=== PATIENT | female | born 1960 | race Caucasian/White ===

== ENCOUNTER 2019-01-30 23:01 | Emergency (ER) | payer MEDICARE ==
[2019-01-30] MEDS ORDERED: OCTYL 2-CYANOACRYLATE 1 EACH TP ONE (23:33)
== END 2019-01-30 23:43 | disposition home or self-care (01) ==
LOC: EDH 23:01
DX: S01.81XA Laceration without foreign body of other part of head, initial encounter (principal); W01.198A Fall on same level from slipping, tripping and stumbling with subsequent striking against other object, initial encounter; Y93.89 Activity, other specified; Y92.009 Unspecified place in unspecified non-institutional (private) residence as the place of occurrence of the external cause; Y99.8 Other external cause status
CPT/HCPCS: 12001

== ENCOUNTER 2019-11-27 12:55 | Inpatient (IN) | payer MEDICARE ==
[~2019-11-27] VITALS: Ht 157.5 cm; Wt 34.2 kg
[2019-11-27 13:56] LABS: CREATININE 0.9 mg/dL (0.5-1.5); POTASSIUM 3.3 mmol/L (3.5-5.1)
[2019-11-27 14:01] LABS: ALBUMIN 3.6 g/dL (3.5-5.0); BILIRUBIN,TOTAL 0.9 mg/dL (0.2-1.0); TOTAL PROTEIN, SERUM 7.8 g/dL (6.0-8.3)
[2019-11-27 14:16] LABS: BASOPHILS % (AUTO) 0.4 % (0.0-5.0); EOSINOPHILS % (AUTO) 2.5 % (0.0-8.0); HEMATOCRIT 48.7 % (36-48); LYMPHOCYTES % (AUTO) 23.2 % (21.0-51.0); MEAN CORPUSCULAR HEMOGLOBIN 29.5 pg (27.0-33.0); MEAN CORPUSCULAR HGB CONC 32.6 g/dL (32.0-36.0); MEAN CORPUSCULAR VOLUME 90.4 fL (79-99); MONOCYTES % (AUTO) 7.2 % (3.0-13.0); NEUTROPHILS % (AUTO) 66.4 % (40.0-77.0); PLATELET COUNT (AUTO) 264 K/uL (130-400); RED BLOOD CELL COUNT(AUTO) 5.39 MIL/uL (4.00-5.50); RED CELL DISTRIBUTION WIDTH 13.7 % (11.0-15.5); WHITE BLOOD COUNT (AUTO) 6.8 K/uL (4.8-10.8)
[2019-11-27 14:59] LABS: B-TYPE NATRIURETIC PEPTIDE 27 pg/mL (0-100)
[2019-11-27 15:04] LABS: APPEARANCE,URINE Cloudy (CLEAR); BILIRUBIN,URINE Negative (NEGATIVE); COLOR,URINE Yellow (YELLOW); GLUCOSE, URINE (UA) Negative (NEGATIVE); KETONES,URINE Trace mg/dL (NEGATIVE); LEUKOCYTE ESTERASE ,URINE Moderate (NEGATIVE); NITRATE,URINE Negative (NEGATIVE); OCCULT BLOOD,URINE Moderate (NEGATIVE); PH,URINE 5.5 (5.0-8.0); PROTEIN,URINE POS 2+ mg/dL (NEGATIVE)
[2019-11-27 15:25] LABS: BACTERIA,URINE Few /HPF (None Seen); MUCUS,URINE Few LPF (None Seen); RBC,URINE None Seen /HPF (0-1); SQUAMOUS EPITHELIAL CELL,UR 0-2 /HPF (0-2); WBC,URINE 26-50 /HPF (0-1)
[2019-11-27] MEDS ORDERED: DIPHENHYDRAMINE HCL 25 MG CAPSULE PO PRN (17:30)
[2019-11-27] MEDS ORDERED: DiphenhydrAMINE HCL 50 MG/ML VIAL IV PRN (17:30)
[2019-11-27] MEDS ORDERED: ONDANSETRON HCL 4 MG/2 ML VIAL IV PRN (17:30)
[2019-11-27] MEDS ORDERED: POTASSIUM CHLORIDE 10% ELIXIR 20 MEQ/15 ML UDCUP PO PRN (17:30)
[2019-11-27] MEDS ORDERED: NITROGLYCERIN 0.4 MG SL TAB SL PRN (17:30)
[2019-11-27] MEDS ORDERED: ACETAMINOPHEN 325 MG TAB PO PRN ×2 (17:30)
[2019-11-27] MEDS ORDERED: HYDRALAZINE HCL 20 MG/ML VIAL IV PRN (17:30)
[2019-11-27] MEDS ORDERED: GUAIFENESIN-DM 200/20 MG 10 ML PO PRN (17:30)
[2019-11-27] MEDS: DEXTROSE 5%-LACTATED RINGERS 1,000 ML IV SCH (17:30)
[2019-11-27] MEDS ORDERED: MAG HYDROX/AL HYDROX/SIMETH ES 30 ML SUSP UDCUP PO PRN (17:30)
[2019-11-27] MEDS ORDERED: LACTULOSE 20 GM/30 ML UDCUP PO PRN (17:30)
[2019-11-27] MEDS ORDERED: POTASSIUM CHLORIDE 20MEQ/100ML 100 ML IV PRN ×2 (17:30)
[2019-11-27] MEDS ORDERED: DEXTROSE 5%-LACTATED RINGERS 1,000 ML IV ONE (17:58)
[2019-11-27] MEDS: ZOSYN 3.375GM+NS 50ML 50 ML IV SCH (21:00)
[2019-11-28] VITALS (7 sets, daily range): BP systolic 92–158; BP diastolic 52–86
[2019-11-28] MEDS ORDERED: BUSP15 PO (01:07)
[2019-11-28] MEDS ORDERED: AMOX500C2 PO (01:11)
[2019-11-28] MEDS ORDERED: DOCU-116 PO (01:11)
[2019-11-28] MEDS ORDERED: PSYL660P17 PO (01:11)
[2019-11-28] MEDS ORDERED: OMEP20TA25 PO (01:11)
[2019-11-28] MEDS ORDERED: CALC950T2 PO (01:11)
[2019-11-28] MEDS ORDERED: BUSP5TAB3 PO (02:02)
[2019-11-28] MEDS ORDERED: BUSPIRONE HCL 5 MG TABLET PO ONE (02:13)
[2019-11-28] MEDS: ZOSYN 3.375GM+NS 50ML 50 ML IV SCH ×3 (04:39→21:22)
[2019-11-28 06:20] LABS: BASOPHILS % (AUTO) 0.4 % (0.0-5.0); EOSINOPHILS % (AUTO) 3.9 % (0.0-8.0); HEMATOCRIT 38.3 % (36-48); LYMPHOCYTES % (AUTO) 30.1 % (21.0-51.0); MEAN CORPUSCULAR HEMOGLOBIN 29.4 pg (27.0-33.0); MEAN CORPUSCULAR HGB CONC 32.9 g/dL (32.0-36.0); MEAN CORPUSCULAR VOLUME 89.3 fL (79-99); MONOCYTES % (AUTO) 7.3 % (3.0-13.0); NEUTROPHILS % (AUTO) 57.9 % (40.0-77.0); PLATELET COUNT (AUTO) 173 K/uL (130-400); RED BLOOD CELL COUNT(AUTO) 4.29 MIL/uL (4.00-5.50); RED CELL DISTRIBUTION WIDTH 13.5 % (11.0-15.5); WHITE BLOOD COUNT (AUTO) 5.6 K/uL (4.8-10.8)
[2019-11-28] MEDS: DEXTROSE 5%-LACTATED RINGERS 1,000 ML IV SCH ×2 (06:21→21:22)
[2019-11-28 06:56] LABS: CREATININE 0.6 mg/dL (0.5-1.5); POTASSIUM 3.4 mmol/L (3.5-5.1)
[2019-11-28] MEDS: BUSPIRONE HCL 5 MG TABLET PO SCH ×6 (09:00→21:23)
[2019-11-28] MEDS ORDERED: BUSPIRONE HCL 5 MG TABLET PO SCH ×2 (09:00)
[2019-11-28] MEDS: PANTOPRAZOLE SODIUM 40 MG TABLET.DR PO SCH (09:40)
[2019-11-28] MEDS: CALCIUM CARBONATE 500 MG TABLET PO SCH (09:40)
[2019-11-28] MEDS: DOCUSATE SODIUM 100 MG CAP PO SCH (09:40)
[2019-11-28] MEDS: ENOXAPARIN SODIUM 30 MG/0.3 ML SQ SCH (09:44)
[2019-11-28] MEDS: POTASSIUM CHLORIDE 20 MEQ ERTAB PO PRN (14:46)
[2019-11-28] MEDS: MORPHINE SULFATE 2 MG/ML 1ML SYG IM PRN ×2 (15:34→23:51)
--- NOTE | 2019-11-28 16:00 | NUR ---
DR. MORRISON PAGED RE; FEMORAL HEAD DISLOCATION PENDING CALL BACK.
--- NOTE | 2019-11-28 16:33 | NUR ---
INITIAL SW spoke with patient's sister, Alison Bertrand. Patient lives at [facility]. She has no home services but [facility] staff assist with ADL's and transportation. Patient needs help with ADL's and does not drive. PCP is Dr. Ayush Barbosa. Pharmacy is [facility]. DCP is back to [facility]. Addendum: 11/28/19 at 1635 by JOSEPH LOVETT SS Amended: Links added.
--- NOTE | 2019-11-28 16:35 | NUR ---
CORRECT PATIENT ADDRESS Patient lives at [facility] located on [address] in [place], [place]., as per sister.
--- NOTE | 2019-11-28 17:45 | NUR ---
DR. MORRISON RETURNED PAGE STATES CALL ME WITH RESULTS OF COVID TEST, POSSIBLE SURGERY ON SATURDAY. NO ORDERS RECEIVED OTHER THAN NPO AFTER SATURDAY MIDNIGHT.
[2019-11-28] MEDS: PSYLLIUM SEED 1 EACH PACKET PO SCH (18:21)
--- NOTE | 2019-11-28 20:10 | NUR ---
Guardian refused surgery Patient's guardian and sister (Ms. Rosas) called and asked regarding pt.'s status and update. Was told regarding possible surgery of Rt. hip, thus consulted Dr. 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 Sister does not agree with the plan and wants to talk to the doctor. Facial Operator will relay the info to day shift RN.
[2019-11-29 03:41] VITALS: BP 123/65
[2019-11-29] MEDS: ZOSYN 3.375GM+NS 50ML 50 ML IV SCH ×3 (04:37→20:46)
[2019-11-29 06:10] LABS: BASOPHILS % (AUTO) 0.4 % (0.0-5.0); EOSINOPHILS % (AUTO) 1.3 % (0.0-8.0); HEMATOCRIT 36.7 % (36-48); MEAN CORPUSCULAR HEMOGLOBIN 29.7 pg (27.0-33.0); MEAN CORPUSCULAR HGB CONC 33.8 g/dL (32.0-36.0); MONOCYTES % (AUTO) 9.3 % (3.0-13.0); NEUTROPHILS % (AUTO) 77.4 % (40.0-77.0); PLATELET COUNT (AUTO) 142 K/uL (130-400); RED BLOOD CELL COUNT(AUTO) 4.17 MIL/uL (4.00-5.50); RED CELL DISTRIBUTION WIDTH 13.3 % (11.0-15.5); WHITE BLOOD COUNT (AUTO) 7.1 K/uL (4.8-10.8)
[2019-11-29 06:40] LABS: CREATININE 0.7 mg/dL (0.5-1.5); POTASSIUM 3.2 mmol/L (3.5-5.1)
[2019-11-29 08:37] VITALS: BP 140/92
[2019-11-29] MEDS: DOCUSATE SODIUM 100 MG CAP PO SCH (08:46)
[2019-11-29] MEDS: CALCIUM CARBONATE 500 MG TABLET PO SCH (08:46)
[2019-11-29] MEDS: BUSPIRONE HCL 5 MG TABLET PO SCH ×6 (08:47→20:47)
[2019-11-29] MEDS: POTASSIUM CHLORIDE 20 MEQ ERTAB PO PRN (08:47)
[2019-11-29] MEDS: ENOXAPARIN SODIUM 30 MG/0.3 ML SQ SCH (08:48)
[2019-11-29] MEDS: PANTOPRAZOLE SODIUM 40 MG TABLET.DR PO SCH (08:48)
[2019-11-29] MEDS: DEXTROSE 5%-LACTATED RINGERS 1,000 ML IV SCH (08:48)
[2019-11-29] MEDS: MORPHINE SULFATE 2 MG/ML 1ML SYG IM PRN ×2 (08:48→18:38)
--- NOTE | 2019-11-29 09:56 | NUR ---
INFORMED ANGLE (SISTER) THAT PT IS NEGATIVE FOR COVID AND WILL BE TRANSFERRED TO [facility]. MEDICAL DATA ANALYST, LINDA AND CASSI VISUAL BASIC DEVELOPER AWARE.
[2019-11-29] MEDS ORDERED: MAGNESIUM 2GM PREMIX 50ML 50 ML IV PRN (10:15)
[2019-11-29 11:56] VITALS: BP 131/57
--- NOTE | 2019-11-29 12:30 | NUR ---
DR MORRISON VISITED WITH PATIENT. POC DISCUSSED. 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 NO SX NECESSARY. YOAN BARBOUR, AWARE.
[2019-11-29] MEDS: PSYLLIUM SEED 1 EACH PACKET PO SCH (16:57)
[2019-11-29 18:16] VITALS: BP 115/72
[2019-11-29 20:22] VITALS: BP 130/67
[2019-11-29 23:20] VITALS: BP 132/88
[2019-11-30] MEDS: DEXTROSE 5%-LACTATED RINGERS 1,000 ML IV SCH ×2 (00:41→21:08)
[2019-11-30 03:30] VITALS: BP 139/75
[2019-11-30] MEDS: ZOSYN 3.375GM+NS 50ML 50 ML IV SCH ×3 (04:12→20:05)
[2019-11-30 05:45] LABS: BASOPHILS % (AUTO) 0.5 % (0.0-5.0); EOSINOPHILS % (AUTO) 3.8 % (0.0-8.0); HEMATOCRIT 35.5 % (36-48); LYMPHOCYTES % (AUTO) 22.1 % (21.0-51.0); MEAN CORPUSCULAR HEMOGLOBIN 29.7 pg (27.0-33.0); MEAN CORPUSCULAR HGB CONC 33.2 g/dL (32.0-36.0); MEAN CORPUSCULAR VOLUME 89.4 fL (79-99); MONOCYTES % (AUTO) 8.2 % (3.0-13.0); NEUTROPHILS % (AUTO) 65.1 % (40.0-77.0); PLATELET COUNT (AUTO) 161 K/uL (130-400); RED BLOOD CELL COUNT(AUTO) 3.97 MIL/uL (4.00-5.50); RED CELL DISTRIBUTION WIDTH 13.6 % (11.0-15.5); WHITE BLOOD COUNT (AUTO) 6.6 K/uL (4.8-10.8)
[2019-11-30 06:33] LABS: CREATININE 0.8 mg/dL (0.5-1.5)
[2019-11-30 08:00] VITALS: BP 139/76
[2019-11-30] MEDS: BUSPIRONE HCL 5 MG TABLET PO SCH ×4 (09:00→20:05)
[2019-11-30] MEDS: DOCUSATE SODIUM 100 MG CAP PO SCH (09:32)
[2019-11-30] MEDS: CALCIUM CARBONATE 500 MG TABLET PO SCH (09:32)
[2019-11-30] MEDS: PANTOPRAZOLE SODIUM 40 MG TABLET.DR PO SCH (09:32)
[2019-11-30] MEDS: ENOXAPARIN SODIUM 30 MG/0.3 ML SQ SCH (09:33)
[2019-11-30 11:00] VITALS: BP 163/75
--- NOTE | 2019-11-30 13:17 | NUR ---
RD NOTIFICATION Pt admitted with UTI, severe PCM, Dehydration. Pt with increased nutrient needs d/t Hx CP with functional quadriplegia. Pt with poor appetite/PO intake at this time. Pt is nonverbal. D% @75mls/hr in place. Pt tolerating GI Soft/[place] puree diet with no report of GI distress. BMI 13.8. One to one in place. Recommend Ensure TID Recommend 60mL ProMod QD RD to continue to monitor. Please notify as additional nutrition concerns arise. Thank you.
[2019-11-30 13:40] VITALS: BP 91/56
[2019-11-30 15:30] VITALS: BP 104/60
[2019-11-30] MEDS: PSYLLIUM SEED 1 EACH PACKET PO SCH (20:05)
[2019-11-30 21:22] VITALS: BP 126/70
--- NOTE | 2019-12-01 00:12 | NUR ---
spoke with patient's sister and explained the situation. she said that the patient likes carly, dr. gómez, ice cream and that she has an appetite at home. she voices her concern about coming to see her in the am.
[2019-12-01 00:27] VITALS: BP 139/76
[2019-12-01] MEDS: ZOSYN 3.375GM+NS 50ML 50 ML IV SCH ×3 (03:48→21:48)
[2019-12-01 06:18] VITALS: BP 146/79
[2019-12-01 07:01] LABS: BASOPHILS % (AUTO) 0.3 % (0.0-5.0); EOSINOPHILS % (AUTO) 2.6 % (0.0-8.0); LYMPHOCYTES % (AUTO) 20.1 % (21.0-51.0); MEAN CORPUSCULAR HEMOGLOBIN 29.6 pg (27.0-33.0); MEAN CORPUSCULAR HGB CONC 33.7 g/dL (32.0-36.0); MEAN CORPUSCULAR VOLUME 87.7 fL (79-99); MONOCYTES % (AUTO) 9.6 % (3.0-13.0); NEUTROPHILS % (AUTO) 67.1 % (40.0-77.0); PLATELET COUNT (AUTO) 181 K/uL (130-400); RED BLOOD CELL COUNT(AUTO) 3.99 MIL/uL (4.00-5.50); RED CELL DISTRIBUTION WIDTH 13.5 % (11.0-15.5); WHITE BLOOD COUNT (AUTO) 5.7 K/uL (4.8-10.8)
[2019-12-01 07:23] LABS: BILIRUBIN,TOTAL 0.6 mg/dL (0.2-1.0); CREATININE 0.6 mg/dL (0.5-1.5); POTASSIUM 3.3 mmol/L (3.5-5.1)
[2019-12-01 08:06] VITALS: BP 140/87
[2019-12-01] MEDS: CALCIUM CARBONATE 500 MG TABLET PO SCH (11:20)
[2019-12-01] MEDS: PANTOPRAZOLE SODIUM 40 MG TABLET.DR PO SCH (11:20)
[2019-12-01] MEDS: DOCUSATE SODIUM 100 MG CAP PO SCH (11:20)
[2019-12-01] MEDS: ENOXAPARIN SODIUM 30 MG/0.3 ML SQ SCH (11:21)
[2019-12-01] MEDS: BUSPIRONE HCL 5 MG TABLET PO SCH ×3 (11:21→21:48)
[2019-12-01 12:28] VITALS: BP 157/76
[2019-12-01] MEDS: DEXTROSE 5%-LACTATED RINGERS 1,000 ML IV SCH ×2 (14:34→14:50)
[2019-12-01 16:07] VITALS: BP 167/80
[2019-12-01 19:00] VITALS: BP 138/97
--- NOTE | 2019-12-01 19:54 | NUR ---
Spoke with pt's sister who says she has changed her mind about pt returning to [facility] facility. Says she wants to take pt home instead, but is not ready to receive her tonight, wants to speak with [facility] administration in the morning first. Will update CHEMICAL PLANT WORKER and CM.
[2019-12-02] VITALS: BP 161/85
[2019-12-02 04:00] VITALS: BP 134/91
[2019-12-02] MEDS: ZOSYN 3.375GM+NS 50ML 50 ML IV SCH ×2 (06:35→13:00)
[2019-12-02] MEDS: DEXTROSE 5%-LACTATED RINGERS 1,000 ML IV SCH (06:36)
[2019-12-02 06:41] LABS: BASOPHILS % (AUTO) 0.6 % (0.0-5.0); EOSINOPHILS % (AUTO) 2.7 % (0.0-8.0); HEMATOCRIT 32.5 % (36-48); LYMPHOCYTES % (AUTO) 27.6 % (21.0-51.0); MEAN CORPUSCULAR HEMOGLOBIN 29.4 pg (27.0-33.0); MEAN CORPUSCULAR HGB CONC 33.8 g/dL (32.0-36.0); MEAN CORPUSCULAR VOLUME 86.9 fL (79-99); MONOCYTES % (AUTO) 8.4 % (3.0-13.0); NEUTROPHILS % (AUTO) 60.3 % (40.0-77.0); PLATELET COUNT (AUTO) 171 K/uL (130-400); RED BLOOD CELL COUNT(AUTO) 3.74 MIL/uL (4.00-5.50); RED CELL DISTRIBUTION WIDTH 13.5 % (11.0-15.5); WHITE BLOOD COUNT (AUTO) 4.9 K/uL (4.8-10.8)
[2019-12-02 07:08] LABS: BILIRUBIN,TOTAL 0.5 mg/dL (0.2-1.0); CREATININE 0.5 mg/dL (0.5-1.5); POTASSIUM 3.2 mmol/L (3.5-5.1)
[2019-12-02 07:50] VITALS: BP 161/87
[2019-12-02] MEDS: PANTOPRAZOLE SODIUM 40 MG TABLET.DR PO SCH (09:02)
[2019-12-02] MEDS: CALCIUM CARBONATE 500 MG TABLET PO SCH (09:02)
[2019-12-02] MEDS: BUSPIRONE HCL 5 MG TABLET PO SCH ×2 (09:02→14:00)
[2019-12-02] MEDS: DOCUSATE SODIUM 100 MG CAP PO SCH (09:02)
[2019-12-02] MEDS: ENOXAPARIN SODIUM 30 MG/0.3 ML SQ SCH (09:03)
[2019-12-02 11:00] VITALS: BP 136/74
--- NOTE | 2019-12-02 13:15 | NUR ---
CM Note: EMS arranged and faxed CM arranged and faxed EMS for patient to home today, primary nurse to call [facility] once pt ready to DC. Primary nurse aware. CM to cont to follow up.
[2019-12-02 16:00] VITALS: BP 147/72
--- NOTE | 2019-12-02 16:15 | NUR ---
FAMILY CALLED CALLED PATIENTS Edd VILLAGOMEZ [phone] TO MAKE SURE FAMILY AT HOME WHEN [facility] EMS CALLED TO TRANSPORT PATIENT HOME. NO ANSWER, LEFT VOICEMAIL WITH CALLBACK NUMBER.
--- NOTE | 2019-12-02 16:25 | NUR ---
PATIENT SISTER (Narciso) VERIFIED WILL BE HOME TO ACCEPT PATIENT PATIENTS SISTER Narciso [phone] STATES SHE WANTS HER SISTER AT HOME AND STATES SHE IS AT HOME NOW AND WILL BE PRESENT TO ACCEPT PATIENT WHEN PATIENT ARRIVES VIA EMS. ALSO REVIEWED DISCHARGE PAPERWORK WITH Narciso Addendum: 12/02/19 at 1705 by YUE FRAZIER RN RN PATIENTS SISTER Narciso ALSO WANTED TO VERIFY THAT EMS WOULD TRANSPORT PATIENT TO Narciso'S PRIVATE RESIDENCE ([address] [place] [id number]).
[2019-12-02] MEDS: PSYLLIUM SEED 1 EACH PACKET PO SCH (16:30)
--- NOTE | 2019-12-02 16:55 | NUR ---
[facility] NOTIFIED [facility] NOTIFIED PATIENT IN ROOM 318 AND READY TO BE PICKED UP AND TRANSPORTED TO PRIVATE RESIDENCE (Edd HORTON'S RESIDENTIAL ADDRESS).
== END 2019-12-02 17:35 | disposition home or self-care (01) | DRG 689 ==
LOC: EDH 12:55 → EDHIP 17:40 → 3BH 21:45 → 3CH 11-30 13:58
PROVIDERS: ADMIT Family Medicine; ATTEND Family Medicine
DX: N39.0 Urinary tract infection, site not specified (principal); R53.2 Functional quadriplegia; E43 Unspecified severe protein-calorie malnutrition; E87.0 Hyperosmolality and hypernatremia; Z68.1 Body mass index [BMI] 19.9 or less, adult; E86.0 Dehydration; E86.1 Hypovolemia; I10 Essential (primary) hypertension; G80.9 Cerebral palsy, unspecified; Z20.828 Contact with and (suspected) exposure to other viral communicable diseases; Q65.89 Other specified congenital deformities of hip
CPT/HCPCS: 36415; 71045; 73501; 73502; 76700; 80048; 80053; 81001; 82550; 83540; 83605; 83690; 83735; 83880; 84484; 85025; 87088; 87426; 87804; 93005; A6250; G0378; J0360; J1650; J2543; J3475; J3490; U0003

== ENCOUNTER → 2020-01-26 | Outpatient (CLI) | payer MEDICARE ==
[~2020-01-26] MED LIST: BUSP5TAB3 PO; CALC950T2 PO; DOCU-116 PO; OMEP20TA25 PO; PSYL660P17 PO
--- NOTE | 2020-01-26 12:48 | NUR ---
MBSS COMPLETED. -S/S OF ASPIRATION. RECOMMEND MECHANICAL SOFT, THIN LIQUIDS; PILLS CRUSHED WITH APPLESAUCE. RESULTS AND RECOMMENDATIONS PROVIDED VIA WRITTEN MODALITY TO SISTER. ALL QUESTIONS ANSWERED AT THIS TIME. WRITTEN HANDOUT FOR EDUCARE PROVIDED. OUTREACH LIAISON's EXTENSION PROVIDED FOR FACILITY IN CASE OF QUESTIONS ABOUT RESULTS AND RECOMMENDATION. Addendum: 01/26/20 at 1251 by JOE THOMPSON, [facility] Amended: Links added.
== END | disposition home or self-care (01) ==
LOC: RAH 09:36
PROVIDERS: ATTEND Family Medicine
DX: R13.12 Dysphagia, oropharyngeal phase (principal)
CPT/HCPCS: 74230; 92611

== ENCOUNTER 2020-03-01 19:18 | Emergency (ER) | payer MEDICARE ==
[2020-03-01] MEDS ORDERED: LORAZEPAM 2 MG/ML 1 ML VIAL IVP ONE (20:48)
[2020-03-01 21:15] LABS: BASOPHILS % (AUTO) 0.6 % (0.0-5.0); EOSINOPHILS % (AUTO) 1.3 % (0.0-8.0); HEMATOCRIT 36.4 % (36-48); LYMPHOCYTES % (AUTO) 30.7 % (21.0-51.0); MEAN CORPUSCULAR HEMOGLOBIN 29.9 pg (27.0-33.0); MEAN CORPUSCULAR HGB CONC 32.7 g/dL (32.0-36.0); MEAN CORPUSCULAR VOLUME 91.5 fL (79-99); MONOCYTES % (AUTO) 6.9 % (3.0-13.0); NEUTROPHILS % (AUTO) 60.3 % (40.0-77.0); PLATELET COUNT (AUTO) 274 K/uL (130-400); RED BLOOD CELL COUNT(AUTO) 3.98 MIL/uL (4.00-5.50); RED CELL DISTRIBUTION WIDTH 13.9 % (11.0-15.5); WHITE BLOOD COUNT (AUTO) 4.6 K/uL (4.8-10.8)
[2020-03-01 21:26] LABS: CREATININE 0.7 mg/dL (0.5-1.5); POTASSIUM 3.9 mmol/L (3.5-5.1)
[2020-03-01 21:31] LABS: ALBUMIN 3.2 g/dL (3.5-5.0); BILIRUBIN,DIRECT 0.1 mg/dL (0.0-0.3); BILIRUBIN,TOTAL 0.3 mg/dL (0.2-1.0); TOTAL PROTEIN, SERUM 6.7 g/dL (6.0-8.3)
[2020-03-01] MEDS ORDERED: LORAZEPAM 2 MG/ML 1 ML VIAL IM ONE (21:43)
[2020-03-01 21:50] LABS: B-TYPE NATRIURETIC PEPTIDE 25 pg/mL (0-100)
[2020-03-01] MEDS ORDERED: SODIUM CHLORIDE 0.9% 1000ML 1,000 ML IV ONE (23:02)
[2020-03-02 00:48] LABS: APPEARANCE,URINE Turbid (CLEAR); BILIRUBIN,URINE Negative (NEGATIVE); COLOR,URINE Yellow (YELLOW); GLUCOSE, URINE (UA) Negative (NEGATIVE); KETONES,URINE Negative (NEGATIVE); LEUKOCYTE ESTERASE ,URINE Small (NEGATIVE); NITRATE,URINE Positive (NEGATIVE); OCCULT BLOOD,URINE Negative (NEGATIVE); PH,URINE 8.5 (5.0-8.0); PROTEIN,URINE POS 1+ mg/dL (NEGATIVE)
[2020-03-02 00:54] LABS: BACTERIA,URINE Many /HPF (None Seen); RBC,URINE None Seen /HPF (0-1)
[2020-03-02] MEDS ORDERED: CEFTRIAXONE SODIUM 2 GM VIAL ONE (01:18)
[2020-03-02] MEDS ORDERED: CEFTRIAXONE SODIUM 1 GM ONE (02:05)
== END 2020-03-02 03:13 | disposition home or self-care (01) ==
LOC: EDH 19:18
DX: N39.0 Urinary tract infection, site not specified (principal); E86.0 Dehydration; R50.9 Fever, unspecified; Z20.828 Contact with and (suspected) exposure to other viral communicable diseases
CPT/HCPCS: 36415; 71250; 74176; 80048; 80076; 81001; 82550; 83880; 84484; 85025; 87077; 87088; 87186; 87426; 87804 ×2; 87880; 93005; 96361; 96372; 96374; 96375; 96376; 99285; J0696 ×2; J2060 ×2; J7030; U0003

== ENCOUNTER 2024-08-07 16:14 | Emergency (ER) | payer MEDICARE ==
[~2024-08-07] VITALS: Ht 147.3 cm; Wt 31.8 kg
[~2024-08-07 16:14] MED LIST changes: +OMEP20TA20 PO; -OMEP20TA25 PO
--- NOTE | 2024-08-07 17:28 | HMCIMG ---
CT HEAD WITHOUT CONTRAST INDICATION: Involuntary movements, left eyelid swelling. Possible fall. TECHNIQUE: Noncontrast axial helical CT images from the vertex through the skull base using 5 mm slice thickness without contrast material. Coronal and sagittal reconstructions were also included. Dose reduction techniques was used using integrated, automated and adaptive dose reduction exposure control. CT was performed with one or more of the following dose reduction techniques: Automated exposure control, adjustment of the mA and/or kV according to patient size, or use of iterative reconstruction technique. COMPARISON: None FINDINGS: Patient positioning is not optimal, and this CT examination is limited as a result. Scattered and coalescent subcortical and periventricular white matter low attenuating areas likely represent residual of chronic small vessel arteriopathy and/or remote vascular insult. Generalized mild cerebral cortical atrophy is present. No evidence for hydrocephalus. Heber's index = 2.5. No evidence for abnormal extra-axial fluid collections or masses. No evidence for intracranial parenchymal, epidural, or subdural hemorrhage, mass effect or midline shift. The albright-white matter differentiation is well preserved. No secondary evidence to suggest acute ischemia. Mild calcific plaque is present along the xiong of the cavernous segments of both internal carotid arteries. The brainstem and cerebellum appear normal. The visualized orbits appear unremarkable. The visible paranasal sinuses and mastoid air cells are clear. The calvarium appears normal. IMPRESSION: Limitations as reported. Chronic white matter ischemic changes, mild brain atrophy, and arteriosclerotic disease as described, without acute component.
--- NOTE | 2024-08-07 17:58 | ERN ---
General Chief Complaint: Skin Problem Stated Complaint: SKIN PROBLEMS Time Seen by MD: 16:16 Source: patient History of Present Illness Initial Comments Patient is a 63-year-old female coming in to be evaluated for multiple complaints. Per family members patient had a small left eyebrow lesion concerning for a fall. Per family member patient might have had a rash. Allergies: Coded Allergies: No Known Drug Allergies (Verified Allergy, Unknown, 11/27/19) Home Meds Reported Medications Buspirone HCl (Buspirone HCl) 5 Mg Tablet, 5 MG PO TID, TAB 11/28/19 Docusate Sodium (Colace) 100 Mg Capsule, 100 MG PO DAILY, CAP 11/28/19 Psyllium Husk (Metamucil) 660 Gm Powder, 660 GM PO ACDINNER, APPL 11/28/19 Calcium Citrate (Calcitrate) 200 Mg Tablet, 200 MG PO DAILY, TAB 11/28/19 Omeprazole (Omeprazole) 20 Mg Tablet.dr, 20 MG PO DAILY, TAB 11/28/19 Physical Exam General Appearance: (+) no apparent distress Results Laboratory and Microbiology Labs Reviewed?: Yes EKG/XRAY/US/CT/MRI CT Scan Comment IMAGING REPORT Signed PATIENT: RENAE PETERSEN MR#: [id number] : 1960 SEX: F AGE: 63 LOCATION: [facility] ORDER [id number] STATUS: [facility] REPORT#: [id number] SERVICE [id number] REASON: LEFT EYE LID SWELLING/ POSSIBLE FALL ORDERING PHYSICIAN: MICHELLE FRAGOSO MD PROCEDURE: HEAD WO - CT HEAD/BRAIN W/O CONTRAST CT HEAD WITHOUT CONTRAST INDICATION: Involuntary movements, left eyelid swelling. Possible fall. TECHNIQUE: Noncontrast axial helical CT images from the vertex through the skull base using 5 mm slice thickness without contrast material. Coronal and sagittal reconstructions were also included. Dose reduction techniques was used using integrated, automated and adaptive dose reduction exposure control. CT was performed with one or more of the following dose reduction techniques: Automated exposure control, adjustment of the mA and/or kV according to patient size, or use of iterative reconstruction technique. COMPARISON: None FINDINGS: Patient positioning is not optimal, and this CT examination is limited as a result. Scattered and coalescent subcortical and periventricular white matter low attenuating areas likely represent residual of chronic small vessel arteriopathy and/or remote vascular insult. Generalized mild cerebral cortical atrophy is present. No evidence for hydrocephalus. Heber's index = 2.5. No evidence for abnormal extra-axial fluid collections or masses. No evidence for intracranial parenchymal, epidural, or subdural hemorrhage, mass effect or midline shift. The albright-white matter differentiation is well preserved. No secondary evidence to suggest acute ischemia. Mild calcific plaque is present along the xiong of the cavernous segments of both internal carotid arteries. The brainstem and cerebellum appear normal. The visualized orbits appear unremarkable. The visible paranasal sinuses and mastoid air cells are clear. The calvarium appears normal. IMPRESSION: Limitations as reported. Chronic white matter ischemic changes, mild brain atrophy, and arteriosclerotic disease as described, without acute component. DICTATED BY: DEJON CRANE MD DATE: 08/07/241718 ELECTRONICALLY SIGNED BY: DEJON CRANE MD DATE: 08/07/241727 [facility] MDM: Differential diagnosis: Left eye swelling, left eye contusion, left eye rash Rationale: Tests considered and ordered secondary to shared decision making include: Patient is a 63-year-old patient brought in by family members. Per family members patient has a left eye erythema which was described by PCP as a rash. On physical exam mild swelling unknown if rash or swelling secondary to trauma. CT did not disclose acute findings. Patient also has a conjunctival inflammation with mild discharged suggestive of conjunctivitis. I did advise coming members appropriate follow up with PCP for ongoing evaluation and management. Topical cream will be provided for rash relief. ED Course Orders Procedure Category Date Status Time Ct Head/Brain W/O CT 08/07/24 Resulted Contrast 16:40 Vital Signs Date Time Temp Pulse Resp B/P (MAP) Pulse Ox O2 Delivery O2 Flow Rate FiO2 08/07/24 16:15 98.2 71 16 174/122 98 Room Air 0 DX & DISP Disposition: Discharge Departure Impression: Primary Impression: Conjunctivitis, left eye Additional Impressions: Generalized rash, Eye swelling, left Condition: Stable Scripts Hydrocortisone (Cortizone-10) 1 % Cream..g. 28 GM TP BID for 7 Days, #1 TUBE Prov: MICHELLE FRAGOSO MD 08/07/24 Neomy Sulf/Polymyx B Sulf/Hc (Cortisporin Ophth Susp) 3.5 Mg-10,000 Unit-10 Mg/Ml Opsus 1 DROP OP TID for 7 Days, #30 ML 0 Refills Prov: MICHELLE FRAGOSO MD 08/07/24 Additional Instructions: FOLLOW-UP WITH PRIMARY CARE PROVIDER IN 1 TO 2 DAYS. TAKE MEDICATIONS DIRECTED HERE IN THE EMERGENCY ROOM. OKAY TO CONTINUE HOME MEDICATIONS UNLESS OTHERWISE DISCUSSED DURING YOUR VISIT IN THE EMERGENCY ROOM TODAY. RETURN TO YOUR NEAREST EMERGENCY ROOM IF SYMPTOMS WORSEN OR IF THERE IS NO IMPROVEMENT. CALL 911 IF YOU NEED IMMEDIATE ASSISTANCE. TAKE TYLENOL [id number] NEEDED AND IF NO CONTRAINDICATIONS ARE PRESENT. INCREASE ORAL HYDRATION. A WOUND CULTURE OR URINE CULTURE WAS ORDERED HERE IN THE EMERGENCY ROOM DEPARTMENT PLEASE FOLLOW-UP WITH PRIMARY CARE PROVIDER AND ADVISE THEM TO GET REPEAT PORTS FROM OUR FACILITY. IF YOU HAD ANY MARYBETH WRAP/SPLINTS THAT WERE APPLIED HERE, PLEASE DO NOT REMOVE THEM UNTIL YOU SEE YOUR PRIMARY CARE OR SPECIALTY. Referrals: Referrals: JASON GIVENS MD (PCP) Time of Disposition: 18:25 MICHELLE FRAGOSO MD Aug 07, 2024 17:57
[2024-08-07] MEDS ORDERED: HYDR28CR97 TP (18:30)
[2024-08-07] MEDS ORDERED: CORTOS OP (18:30)
[2024-08-07 19:06] VITALS: BP 147/89; PULSE 46; RESP 16; TEMP 97.6; O2SAT 92
--- NOTE | 2024-08-07 19:19 | NUR ---
NOTED LEFT UPPER SIDE OF FOREHEAD REDNESS, EFRAIN TO EYEBROW AND SWELLING TO NASAL AREA.
== END 2024-08-07 19:47 | disposition home or self-care (01) ==
LOC: EDH 16:14
DX: H10.9 Unspecified conjunctivitis (principal); R21 Rash and other nonspecific skin eruption; R22.0 Localized swelling, mass and lump, head; Z79.899 Other long term (current) drug therapy; W18.39XA Other fall on same level, initial encounter; Y93.89 Activity, other specified; Y92.89 Other specified places as the place of occurrence of the external cause; Y99.8 Other external cause status
CPT/HCPCS: 70450; 99284